=== PATIENT | male | born 1970 | race Caucasian/White ===

== ENCOUNTER 2016-09-27 15:36 | Emergency (ER) | payer SELFPAY ==
[2016-09-27] MEDS ORDERED: Pantoprazole 40 MG Vial IVPUSH ONE (16:08)
[2016-09-27] MEDS ORDERED: Sodium Chloride 0.9% 1,000 ML IV ONE (16:08)
--- NOTE | 2016-09-27 16:29 | EDM.PDOC ---
ED HPI GI/ABDOMINAL - General Chief Complaint: Gastrointestinal Problem Stated Complaint: STOOL IS BLACK Time Seen by Provider: 09/27/16 16:05 Source of Information: Reports: Patient History Limitations: Reports: No limitations - History of Present Illness INITIAL COMMENTS - FREE TEXT/NARRATIVE: History of present illness: [46-year-old male presenting with acute onset of volcanic liquid stools indicating that this had been acute onset after eating at a restaurant in [place]. Patient indicates his stools are like charcoal or looks like tissue has been sent in the toilet.] Review of systems: As per history of present illness and below otherwise all systems reviewed and negative. Past medical history: As per history of present illness and as reviewed below otherwise noncontributory. Surgical history: As per history of present illness and as reviewed below otherwise noncontributory. Social history: No reported history of drug or alcohol abuse. Family history: As per history of present illness and as reviewed below otherwise noncontributory. Physical exam: HEENT: Atraumatic, normocephalic, pupils reactive, negative for conjunctival pallor or scleral icterus, mucous membranes moist, throat clear, neck supple, nontender, trachea midline. Lungs: Clear to auscultation, breath sounds equal bilaterally, chest nontender. Heart: S1S2, regular, negative for clicks, rubs, or JVD. Abdomen: Soft, nondistended, nontender. Negative for masses or hepatosplenomegaly. Negative for costovertebral tenderness. Pelvis: Stable nontender. Genitourinary: Deferred. Rectal: Deferred. Extremities: Atraumatic, negative for cords or calf pain. Neurovascular unremarkable. Neuro: Awake, alert, oriented. Cranial nerves II through XII unremarkable. Cerebellum unremarkable. Motor and sensory unremarkable throughout. Exam nonfocal. Diagnostics: [CBC, CMP] Therapeutics: [IV fluids Protonix push] Impression: [gastritits] Plan: [Clear liquid, Ranitidine] Definitive disposition and diagnosis as appropriate pending reevaluation and review of above. - Related Data Allergies/ADRs: Allergies Allergy/AdvReac Type Severity Reaction Status Date / Time No Known Allergies Allergy Verified 09/27/16 15:50 Home Meds: Home Meds . [No Known Home Meds] 09/27/16 [History] Past Medical History HEENT History: Reports: None Cardiovascular History: Reports: None Respiratory History: Reports: None Gastrointestinal History: Reports: None Genitourinary History: Reports: None Musculoskeletal History: Reports: None Neurological History: Reports: None Psychiatric History: Reports: Depression Endocrine/Metabolic History: Reports: None Hematologic History: Reports: None Immunologic History: Reports: None Oncologic (Cancer) History: Reports: None Dermatologic History: Reports: None - Past Surgical History Head Surgeries/Procedures: Reports: None HEENT Surgical History: Reports: None Cardiovascular Surgical History: Reports: None Respiratory Surgical History: Reports: None GI Surgical History: Reports: None Musculoskeletal Surgical History: Reports: Other (see below) Other Musculoskeletal Surgeries/Procedures:: jaw surgery Social & Family History - Family History Family Medical History: Noncontributory - Tobacco Use Smoking Status *Q: Current Every Day Smoker Years of Tobacco use: 20 Packs/Tins Daily: 0.5 - Caffeine Use Caffeine Use: Reports: Coffee, Soda, Tea - Recreational Drug Use Recreational Drug Use: No ED ROS GENERAL - Review of Systems Review Of Systems: See Below (See history of present illness) ED EXAM, GI/ABD - Physical Exam Exam: See Below (See history of present illness) Course - Vital Signs Last Recorded V/S: Last Vital Signs Temp 39.6 C H 09/27/16 17:27 Pulse 115 H 09/27/16 17:27 Resp 18 09/27/16 17:27 BP 147/82 H 09/27/16 17:27 Pulse Ox 92 L 09/27/16 17:27 - Orders/Labs/Meds Orders: Active Orders 24 hr Category Date Time Status Abdomen Pelvis w Cont [CT] Stat Exams 09/27/16 17:26 Taken AMYLASE [CHEM] Stat Lab 09/27/16 18:17 Ordered LACTIC ACID,WHOLE BLOOD [BG] Stat Lab 09/27/16 18:18 Ordered LIPASE [CHEM] Stat Lab 09/27/16 18:17 Ordered Labs: Laboratory Tests 09/27/16 09/27/16 09/27/16 Range/Units 16:33 16:33 17:49 WBC 12.91 H (4.0-11.0) K/uL RBC 4.88 (4.50-5.90) M/uL Hgb 16.5 (13.0-17.0) g/dL Hct 45.0 (38.0-50.0) % MCV 92.2 (80.0-98.0) fL MCH 33.8 H (27.0-32.0) pg MCHC 36.7 (31.0-37.0) g/dL RDW Std Deviation 43.2 (28.0-62.0) fl RDW Coeff of Topher 13 (11.0-15.0) % Plt Count 179 (150-400) K/uL MPV 11.90 (7.40-12.00) fL Neut % (Auto) 75.0 (48.0-80.0) % Lymph % (Auto) 16.1 (16.0-40.0) % Alfalfa % (Auto) 7.9 (0.0-15.0) % Eos % (Auto) 0.8 (0.0-7.0) % Baso % (Auto) 0.2 (0.0-1.5) % Neut # (Auto) 9.7 H (1.4-5.7) K/uL Lymph # (Auto) 2.1 (0.6-2.4) K/uL Alfalfa # (Auto) 1.0 H (0.0-0.8) K/uL Eos # (Auto) 0.1 (0.0-0.7) K/uL Baso # (Auto) 0.0 (0.0-0.1) K/uL Nucleated RBC % 0.0 /100WBC Nucleated RBCs # 0 K/uL Sodium 137 (136-146) mmol/L Potassium 4.7 (3.5-5.1) mmol/L Chloride 108 (98-110) mmol/L Carbon Dioxide 21 (21-31) mmol/L BUN 12 (6.0-23.0) mg/dL Creatinine 0.9 (0.6-1.5) mg/dL Est Cr Clr Drug Dosing 112.57 mL/min Estimated GFR (MDRD) > 60.0 ml/min Glucose 72 (60-110) mg/dL Calcium 9.1 (8.8-10.8) mg/dL Total Bilirubin 0.5 (0.1-1.5) mg/dL AST 85 H (5-40) IU/L ALT 142 H (8-54) IU/L Alkaline Phosphatase 63 (40-150) Total Protein 8.3 H (6.0-8.0) g/dL Albumin 4.0 (3.5-5.0) g/dL Globulin 4.3 H (2.0-3.5) g/dL Albumin/Globulin Ratio 0.9 L (1.3-2.8) Urine Color YELLOW Urine Appearance CLEAR Urine pH 7.0 (5.0-8.0) Ur Specific [place] 1.015 (1.001-1.035) Urine Protein NEGATIVE (NEGATIVE) mg/dL Urine Glucose (UA) NEGATIVE (NEGATIVE) mg/dL Urine Ketones NEGATIVE (NEGATIVE) mg/dL Urine Occult Blood NEGATIVE (NEGATIVE) Urine Nitrite NEGATIVE (NEGATIVE) Urine Bilirubin NEGATIVE (NEGATIVE) Urine Urobilinogen 0.2 (<2.0) EU/dL Ur Leukocyte Esterase NEGATIVE (NEGATIVE) Urine RBC 0-1 (0-2/HPF) Urine WBC 0-1 (0-5/HPF) Ur Epithelial Cells RARE (NONE-FEW) Urine Bacteria RARE (NEGATIVE) Meds: Medications Discontinued Medications Generic Name Dose Route Start Last Admin Trade Name Freq PRN Reason Stop Dose Admin Sodium Chloride 1,000 mls @ 999 mls/hr 09/27/16 16:08 09/27/16 16:39 Normal Saline IV 09/27/16 17:08 999 mls/hr STAT ONE Administration Iopamidol 100 ml 09/27/16 18:03 09/27/16 18:05 Isovue-370 (76%) IVPUSH 09/27/16 18:04 100 ml ONETIME STA Administration Ketorolac Tromethamine 30 mg 09/27/16 17:25 09/27/16 17:30 Toradol IVPUSH 09/27/16 17:26 30 mg ONETIME ONE Administration Pantoprazole Sodium 80 mg 09/27/16 16:08 09/27/16 16:39 Protonix Iv IVPUSH 09/27/16 16:09 80 mg .BOLUS ONE Administration Departure - Departure Time of Disposition: 18:29 Disposition: Home, Self-Care 01 Condition: good Clinical Impression: Gastroenteritis Instructions: Viral Gastroenteritis, Adult, [id number], Abdominal Pain, Adult , [id number], Diarrhea, Adult, [id number] Forms: ED Department Discharge Additional Instructions: The following information is given to patients seen in the emergency department who are being discharged to home. This information is to outline your options for follow-up care. We provide all patients seen in our emergency department with a follow-up referral. The need for follow-up, as well as the timing and circumstances, are variable depending upon the specifics of your emergency department visit. If you don't have a primary care physician on staff, we will provide you with a referral. We always advise you to contact your personal physician following an emergency department visit to inform them of the circumstance of the visit and for follow-up with them and/or the need for any referrals to a consulting specialist. The emergency department will also refer you to a specialist when appropriate. This referral assures that you have the opportunity for follow-up care with a specialist. All of these measure are taken in an effort to provide you with optimal care, which includes your follow-up. Under all circumstances we always encourage you to contact your private physician who remains a resource for coordinating your care. When calling for follow-up care, please make the office aware that this follow-up is from your recent emergency room visit. If for any reason you are refused follow-up, please contact the [facility] Emergency Department at and asked to speak to the emergency department charge nurse. Take medication as directed All the PCP in one to 2 days Return to ED as needed as discussed - My Orders Last 24 Hours: My Active Orders 09/27/16 17:26 Abdomen Pelvis w Cont [CT] Stat 09/27/16 18:17 AMYLASE [CHEM] Stat LIPASE [CHEM] Stat 09/27/16 18:18 LACTIC ACID,WHOLE BLOOD [BG] Stat - Assessment/Plan Last 24 Hours: My Active Orders 09/27/16 17:26 Abdomen Pelvis w Cont [CT] Stat 09/27/16 18:17 AMYLASE [CHEM] Stat LIPASE [CHEM] Stat 09/27/16 18:18 LACTIC ACID,WHOLE BLOOD [BG] Stat
[2016-09-27 17:03] LABS: CHLORIDE,CL 108 mmol/L (98-110); SODIUM,NA 137 mmol/L (136-146)
[2016-09-27] MEDS ORDERED: Ketorolac 30 MG/ML SDV IVPUSH ONE (17:25)
[2016-09-27] MEDS ORDERED: Iopamidol 755 Mg/ML 100 ML Bottle IVPUSH STA (18:03)
[2016-09-27] MEDS ORDERED: Ibuprofen 800 MG Tab PO ONE (18:30)
[2016-09-27 18:51] VITALS: BP 108/69
--- NOTE | 2016-09-28 09:57 | CT ---
EXAM DATE: 09/27/16 PATIENT'S AGE: 46 Patient: FELIX ESPOSITO Facility: [place], [place] Site . Site : [id number] Study: CT Abdomen/Pelvis [id number]/19/2017 6:06:34 PM Ordering Physician: Doctor Shore Final Report: INDICATION: Lower abdominal pain x3 days. Black stools x2 days. Elevated white blood count. Dizziness started today. TECHNIQUE: CT abdomen and pelvis acquired with 100 mL of Isovue 370 IV contrast. COMPARISON: None. FINDINGS: Lower chest: Unremarkable. Liver: Unremarkable. Spleen: Unremarkable. Pancreas: Unremarkable. Gallbladder and bile ducts: Unremarkable. Kidneys: 2 mm nonobstructing stone in the mid left kidney. No evidence of ureteral stone or hydroureteronephrosis. Adrenal glands: Unremarkable. GI tract: No bowel obstruction or acute appendicitis. Mild colonic diverticulosis without evidence of acute diverticulitis. The GI tract is otherwise unremarkable. No free air or free fluid. Vascular structures: Unremarkable. Lymph nodes: Unremarkable. Pelvic Organs: Unremarkable. Bones: No acute abnormality. IMPRESSION: No acute intra-abdominal or pelvic abnormality. Mild colonic diverticulosis without evidence of acute diverticulitis. Nonobstructing left renal stone. Dictated by Renato Ramos MD @ 09/27/2016 6:27:02 PM Dictated by: Renato Ramos MD @ 09/27/2016 18:27:26 (Electronic Signature) Report Signed by Proxy and Original Signed Document filed in the Medical Record. MTDD
== END 2016-09-27 18:47 | disposition home or self-care (01) ==
LOC: MW.ED 15:36
DX: K52.9 Noninfective gastroenteritis and colitis, unspecified (principal); F32.9 Major depressive disorder, single episode, unspecified; F17.210 Nicotine dependence, cigarettes, uncomplicated; Z98.890 Other specified postprocedural states
CPT/HCPCS: 36415; 74177; 80053; 81001; 82150; 83605; 83690; 85025; 96361; 96374; 96375; 99284; A9270; C9113; J1885; J7040; Q9967; 99283